=== PATIENT | male | born 1980 | race Caucasian/White ===

== ENCOUNTER 2021-08-02 11:10 | Emergency (ER) | payer BC ==
[~2021-08-02] VITALS: Ht 180.3 cm; Wt 118.8 kg
== END 2021-08-02 14:00 | disposition home or self-care (01) ==
LOC: ER1 11:10
DX: U07.1 COVID-19 (principal); Z23 Encounter for immunization; Z87.442 Personal history of urinary calculi
CPT/HCPCS: 71045; 99284; M0243